=== PATIENT | female | born 1975 | race African-American/Black ===

== ENCOUNTER 2024-12-26 20:37 | Emergency (ER) | payer MEDICARE, MEDICAID ==
[~2024-12-26] VITALS: Ht 165.1 cm; Wt 150.0 kg
[2024-12-26 21:05] VITALS: O2SAT 97
[2024-12-26 22:25] LABS: BASOPHILS % 0.1 % (0.0-2.0); EOSINOPHILS % 3.0 % (0.0-5.0); HEMATOCRIT. 33.3 % (36.0-48.0); HEMOGLOBIN. 10.5 g/dL (12.0-16.0); LYMPHOCYTES % 26.3 % (20.0-50.0); MEAN PLATELET VOLUME 8.1 fl (7.4-10.4); MONOCYTES % 8.4 % (2.0-8.0); NEUTROPHILS % 62.2 % (40.0-76.0); PLATELET 323 x1000/uL (130-400); RED BLOOD CELL COUNT 4.10 mill/uL (4.2-5.4); RED CELL DISTRIBUTION WIDTH 17.5 % (11.6-14.6)
[2024-12-26 22:44] LABS: HCG SCREEN NEGATIVE
[2024-12-26] MEDS: ACETAMINOPHEN 500MG TABLET PO NR (22:47)
[2024-12-26 22:52] LABS: CREATININE 1.1 mg/dL (0.6-1.0); UREA NITROGEN BLOOD 11 mg/dL (9-23)
[2024-12-26 22:53] LABS: TROPONIN I HIGH SENSITIVITY < 4 ng/L (3.0-34)
[2024-12-26 22:54] LABS: ASPARTATE AMINOTRANSFERASE 36 IU/L (<34); BILIRUBIN DIRECT 0.2 mg/dL (<=3.0); BILIRUBIN TOTAL 0.5 mg/dL (0.1-1.0); PROTEIN TOTAL 7.1 g/dL (6.0-8.3)
[2024-12-27 00:27] VITALS: BP 150/95; PULSE 71; RESP 12; TEMP 36.8; O2SAT 98
== END 2024-12-27 01:23 | disposition home or self-care (01) ==
LOC: ER 20:37
DX: R07.9 Chest pain, unspecified (principal); E11.9 Type 2 diabetes mellitus without complications; R06.02 Shortness of breath; Z88.0 Allergy status to penicillin
CPT/HCPCS: 36415; 71045; 80048; 80076; 83880; 84484; 84703; 85025; 93005; 99285

== ENCOUNTER 2024-12-28 15:25 | Emergency (ER) | payer MEDICARE, MEDICAID ==
[~2024-12-28] VITALS: Ht 170.2 cm; Wt 160.0 kg
[2024-12-28 15:27] VITALS: BP 138/94; PULSE 92; RESP 16; TEMP 36.8; O2SAT 98
[2024-12-29] MEDS ORDERED: NAPR-1176 MT (00:34)
== END 2024-12-28 21:05 | disposition left against medical advice (07) ==
LOC: ER 15:25
DX: R53.1 Weakness (principal); E78.00 Pure hypercholesterolemia, unspecified; F31.9 Bipolar disorder, unspecified; I10 Essential (primary) hypertension; Z53.29 Procedure and treatment not carried out because of patient's decision for other reasons; Z59.00 Homelessness unspecified; Z88.0 Allergy status to penicillin
CPT/HCPCS: 93005; 99283

== ENCOUNTER 2024-12-28 21:59 | Emergency (ER) | payer MEDICARE, MEDICAID ==
[~2024-12-28] VITALS: Ht 167.6 cm; Wt 150.0 kg
[2024-12-28 22:01] VITALS: O2SAT 98
[2024-12-28 22:18] VITALS: BP 175/102; PULSE 83; RESP 18; TEMP 37; O2SAT 98
[2024-12-29] MEDS: ACETAMINOPHEN 325MG TABLET PO ONE (00:10)
[2024-12-29] MEDS ORDERED: NAPR-1176 MT (00:34)
== END 2024-12-29 01:24 | disposition home or self-care (01) ==
LOC: ER 21:59
DX: M79.18 Myalgia, other site (principal); I10 Essential (primary) hypertension; E78.00 Pure hypercholesterolemia, unspecified; F20.9 Schizophrenia, unspecified; F31.9 Bipolar disorder, unspecified; Z79.1 Long term (current) use of non-steroidal anti-inflammatories (NSAID); Z88.0 Allergy status to penicillin
CPT/HCPCS: 99282; 99283

== ENCOUNTER 2025-02-08 02:09 | Emergency (ER) | payer MEDICARE, MEDICAID ==
[~2025-02-08] VITALS: Ht 170.2 cm; Wt 114.0 kg
[~2025-02-08 02:09] MED LIST: NAPR-1176 MT
[2025-02-08 02:16] VITALS: BP 169/99; PULSE 90; RESP 18; TEMP 97.9; O2SAT 98
[2025-02-08] MEDS: METFORMIN HCL 500MG TABLET PO ONE (03:22)
[2025-02-08] MEDS: ATORVASTATIN CALCIUM 10MG TABLET PO SCH (03:22)
[2025-02-08] MEDS: AMLODIPINE 5MG TABLET PO ONE (03:22)
[2025-02-08] MEDS: KETOROLAC 15MG/ML VIAL IM ONE (03:44)
[2025-02-08] MEDS: ONDANSETRON 4MG ODT PO ONE (03:45)
[2025-02-08] MEDS ORDERED: ONDA4TAB50 MT (03:48)
[2025-02-08] MEDS ORDERED: ATOR10TA69 MT (03:48)
[2025-02-08] MEDS ORDERED: METF-414 MT (03:48)
[2025-02-08] MEDS ORDERED: AMLO5TAB88 MT (03:48)
== END 2025-02-08 04:24 | disposition home or self-care (01) ==
LOC: ER 02:09
DX: R11.0 Nausea (principal); E11.9 Type 2 diabetes mellitus without complications; E78.00 Pure hypercholesterolemia, unspecified; F31.9 Bipolar disorder, unspecified; I10 Essential (primary) hypertension; Z76.0 Encounter for issue of repeat prescription; Z79.899 Other long term (current) drug therapy; Z88.0 Allergy status to penicillin
CPT/HCPCS: 99284; 96372; J1885; Q0162

== ENCOUNTER 2025-03-03 15:22 | Emergency (ER) | payer MEDICARE, MEDICAID ==
[~2025-03-03] VITALS: Ht 165.1 cm; Wt 181.0 kg
[~2025-03-03 15:22] MED LIST changes: +AMLO5TAB88 MT; +ATOR10TA69 MT; +METF-414 MT; +ONDA4TAB50 MT
[2025-03-03 15:24] VITALS: O2SAT 97
[2025-03-03] MEDS: SODIUM CHLORIDE 0.9% 1,000 ML IV ONE (17:33)
[2025-03-03] MEDS: KETOROLAC 15MG/ML VIAL IV ONE (17:33)
[2025-03-03 18:17] LABS: BASOPHILS % 0.3 % (0.0-2.0); EOSINOPHILS % 4.4 % (0.0-5.0); HEMATOCRIT. 30.0 % (36.0-48.0); HEMOGLOBIN. 9.4 g/dL (12.0-16.0); LYMPHOCYTES % 23.7 % (20.0-50.0); MEAN PLATELET VOLUME 7.6 fl (7.4-10.4); MONOCYTES % 9.4 % (2.0-8.0); NEUTROPHILS % 62.2 % (40.0-76.0); PLATELET 309 x1000/uL (130-400); RED BLOOD CELL COUNT 3.62 mill/uL (4.2-5.4); RED CELL DISTRIBUTION WIDTH 16.7 % (11.6-14.6)
[2025-03-03 18:23] LABS: CREATININE 1.0 mg/dL (0.6-1.0); UREA NITROGEN BLOOD 10 mg/dL (9-23)
[2025-03-03 18:26] LABS: HCG SCREEN NEGATIVE
[2025-03-03] MEDS ORDERED: POTASSIUM CHLORIDE 20MEQ/PACKET PO ONE (19:00)
[2025-03-03] MEDS: POTASSIUM CHLORIDE 20MEQ/PACKET PO NR (21:12)
[2025-03-03] MEDS ORDERED: AMLO5TAB6 MT (21:34)
[2025-03-03] MEDS: AMLODIPINE 5MG TABLET PO ONE (22:17)
[2025-03-03 22:54] VITALS: BP 187/103; PULSE 76; RESP 15; TEMP 36.7; O2SAT 98
== END 2025-03-03 23:16 | disposition home or self-care (01) ==
LOC: ER 15:22 → CMPBEDREQ 03-04 07:47
DX: M79.604 Pain in right leg (principal); M79.605 Pain in left leg; R32 Unspecified urinary incontinence; L98.419 Non-pressure chronic ulcer of buttock with unspecified severity; E11.9 Type 2 diabetes mellitus without complications; F31.9 Bipolar disorder, unspecified; I10 Essential (primary) hypertension; Z79.1 Long term (current) use of non-steroidal anti-inflammatories (NSAID); Z79.84 Long term (current) use of oral hypoglycemic drugs; Z79.899 Other long term (current) drug therapy; Z85.819 Personal history of malignant neoplasm of unspecified site of lip, oral cavity, and pharynx; Z88.0 Allergy status to penicillin
CPT/HCPCS: 99285; 93970; 96374; 96361; 80048; 84703; 84550; 85025; 36415; 93005; J1885; J7030

== ENCOUNTER 2025-03-03 23:22 | Emergency (ER) | payer MEDICARE, MEDICAID ==
[~2025-03-03] VITALS: Ht 167.6 cm; Wt 157.0 kg
[~2025-03-03 23:22] MED LIST changes: +AMLO5TAB6 MT
[2025-03-03 23:30] VITALS: TEMP 36.8
[2025-03-04 03:17] LABS: BASOPHILS % 0.7 % (0.0-2.0); EOSINOPHILS % 5.2 % (0.0-5.0); HEMATOCRIT. 32.9 % (36.0-48.0); HEMOGLOBIN. 10.1 g/dL (12.0-16.0); LYMPHOCYTES % 25.0 % (20.0-50.0); MEAN PLATELET VOLUME 7.5 fl (7.4-10.4); MONOCYTES % 8.9 % (2.0-8.0); NEUTROPHILS % 60.2 % (40.0-76.0); PLATELET 319 x1000/uL (130-400); RED BLOOD CELL COUNT 4.00 mill/uL (4.2-5.4); RED CELL DISTRIBUTION WIDTH 17.1 % (11.6-14.6)
[2025-03-04 03:27] LABS: CREATININE 0.9 mg/dL (0.6-1.0); ETHANOL BLOOD < 10 mg/dL (<10); UREA NITROGEN BLOOD 9 mg/dL (9-23)
[2025-03-04 03:50] LABS: HCG SCREEN NEGATIVE
[2025-03-04] MEDS: POTASSIUM CHLORIDE 20MEQ TABLET SR PO ONE (04:43)
[2025-03-04 11:36] VITALS: BP 152/99; PULSE 87; RESP 16; O2SAT 100
== END 2025-03-04 11:37 | disposition home or self-care (01) ==
LOC: ER 23:22
DX: R45.851 Suicidal ideations (principal); E11.9 Type 2 diabetes mellitus without complications; F31.9 Bipolar disorder, unspecified; I11.9 Hypertensive heart disease without heart failure; Z79.899 Other long term (current) drug therapy; Z88.0 Allergy status to penicillin; Z20.822 Contact with and (suspected) exposure to COVID-19
CPT/HCPCS: 36415; 80048; 80307; 80320; 80329; 84703; 85025; 87426; 93005; 99284; G0480